=== PATIENT | male | born 1990 | race Caucasian/White ===

== ENCOUNTER 2017-02-22 12:42 | Emergency (ER) | payer OTHER, SELFPAY ==
[2017-02-22] MEDS ORDERED: methylPREDNISolone Sod Succ/PF 125 MG/2 ML VIAL ONE (13:09)
[2017-02-22] MEDS ORDERED: Ketorolac Tromethamine 30 MG/ML VIAL ONE (13:09)
[2017-02-22] MEDS ORDERED: Sterile Water 10 ML ONE (13:09)
--- NOTE | 2017-02-22 13:51 | RAD ---
LEFT RIBS 3 VIEWS: HISTORY: A 27-year-old male with left rib pain primarily underneath the shoulder blades after bending over. IMPRESSION: No fracture, dislocation, pneumothorax, pleural effusion, or other acute process involving the left ribs. POS: ROXANA
--- NOTE | 2017-02-22 13:59 | RAD ---
RIGHT RIB GREATER THAN OR EQUAL TO 2 VIEW STANDARD: HISTORY: Pain underneath the shoulder blades. New onset 2 days ago after bending over. COMPARISON: None. FINDINGS: No displaced fracture or malalignment. Lungs are clear. No pneumothorax. No significant effusion. Lumbar spine appears unremarkable. IMPRESSION: No displaced rib fracture. POS: OFF
== END 2017-02-22 14:07 | disposition home or self-care (01) ==
LOC: ERS 12:42
DX: M94.0 Chondrocostal junction syndrome [Tietze] (principal); M54.6 Pain in thoracic spine; F90.9 Attention-deficit hyperactivity disorder, unspecified type; X50.1XXA Overexertion from prolonged static or awkward postures, initial encounter; Y93.H3 Activity, building and construction
CPT/HCPCS: 96372; A4216; J1885; J2930